=== PATIENT | female | born 1990 | race Caucasian/White ===

== ENCOUNTER 2022-07-29 18:58 | Inpatient (IN) | payer MEDICAID, OTHER ==
--- NOTE | 2022-07-29 20:14 | ED ---
Psych HPI - General Chief Complaint: Psychiatric Symptoms Stated Complaint: Mental Health issues Time Seen by Provider: 07/29/22 20:00 Source: patient, RN notes reviewed Mode of arrival: ambulatory - History of Present Illness Initial Comments: 32-year-old female history depression and schizophrenia who states she still a very depressed and suicidal. She states this is been going on for about 2 weeks. She states her life is falling apart. She has no particular plan on hurting so but she would like to . She also states she has untreated schizophrenia which she hasn't had meds for for several years. She denies any drug or alcohol use. MD Complaint: suicidal ideation, feels depressed, other - Related Data Previous Rx's Medication Instructions Recorded Ibuprofen [Motrin] 600 mg PO Q6HR PRN tab 08/04/22 [place] Carbonate 900 mg PO DAILY 30 Days #90 cap 08/04/22 Melatonin 5 mg PO HS 30 Days #30 tab 08/04/22 Nicotine Gum (Polacrilex) 2 mg BUCCAL Q4HR PRN 30 Days #180 08/04/22 [Nicorette] pieceofgum Paliperidone [Invega] 6 mg PO DAILY 30 Days #30 tab 08/04/22 diphenhydrAMINE [Benadryl] 50 mg PO HS PRN 30 Days #30 cap 08/04/22 hydrOXYzine pamoate [Vistaril] 25 mg PO DAILY PRN 30 Days #30 cap 08/04/22 Allergies Allergy/AdvReac Type Severity Reaction Status Date / Time haloperidol [From Haldol] Allergy Unknown Verified 07/30/22 03:57 Review of Systems ROS Statement: Those systems with pertinent positive or pertinent negative responses have been documented in the HPI. ROS Other: All systems not noted in ROS Statement are negative. Past Medical History Past Medical History: No Reported History History of Any Multi-Drug Resistant Organisms: None Reported Past Surgical History: No Surgical Hx Reported Past Psychological History: Anxiety, Bipolar, Depression, PTSD, Schizophrenia Smoking Status: Vaper Past Alcohol Use History: Occasional Past Drug Use History: None Reported General Exam - General Exam Comments Initial Comments: This a well-developed well-nourished awake alert oriented 4 female Limitations: no limitations General appearance: alert, in no apparent distress Head exam: Present: atraumatic, normocephalic, normal inspection Eye exam: Present: normal appearance, PERRL, EOMI. Absent: scleral icterus, conjunctival injection, periorbital swelling ENT exam: Present: normal exam, mucous membranes moist Neck exam: Present: normal inspection. Absent: tenderness, meningismus, lymphadenopathy Respiratory exam: Present: normal lung sounds bilaterally. Absent: respiratory distress, wheezes, rales, rhonchi, stridor Cardiovascular Exam: Present: regular rate, normal rhythm, normal heart sounds. Absent: systolic murmur, diastolic murmur, rubs, gallop, clicks GI/Abdominal exam: Present: normal bowel sounds. Absent: distended, tenderness, guarding, rebound, rigid Extremities exam: Present: normal inspection, full ROM, normal capillary refill. Absent: tenderness, pedal edema, joint swelling, calf tenderness Back exam: Present: normal inspection Neurological exam: Present: alert, oriented X3, CN II-XII intact Psychiatric exam: Present: depressed, flat affect, suicidal ideation Skin exam: Present: warm, dry, intact, normal color. Absent: rash Course Vital Signs 07/29/22 19:32 Temperature 98.0 F Pulse Rate 70 Respiratory 20 Rate Blood Pressure 132/82 O2 Sat by Pulse 98 Oximetry - Reevaluation(s) Reevaluation #1: 07/29/22 20:51 The patient is pending EPS evaluation I will endorse patient to Dr. Munoz at our shift change Medical Decision Making - Lab Data Result diagrams: 07/31/22 07:26 07/31/22 07:26 Lab Results 07/29/22 07/29/22 07/29/22 Range/Units 20:15 20:15 20:15 Urine Color Yellow Urine Appearance Cloudy H (Clear) Urine pH 6.5 (5.0-8.0) Ur Specific [place] 1.024 (1.001-1.035) Urine Protein Negative (Negative) Urine Glucose (UA) Negative (Negative) Urine Ketones Negative (Negative) Urine Blood Negative (Negative) Urine Nitrite Negative (Negative) Urine Bilirubin Negative (Negative) Urine Urobilinogen <2.0 (<2.0) mg/dL Ur Leukocyte Esterase Moderate H (Negative) Urine RBC 1 (0-5) /hpf Urine WBC 34 H (0-5) /hpf Ur Squamous Epith Cells 7 H (0-4) /hpf Urine Mucus Rare H (None) /hpf Urine HCG, Qual Not Detected (Not Detectd) Urine Opiates Screen Not Detected (NotDetected) Ur Oxycodone Screen Not Detected (NotDetected) Urine Methadone Screen Not Detected (NotDetected) Ur Propoxyphene Screen Not Detected (NotDetected) Ur Barbiturates Screen Not Detected (NotDetected) U Tricyclic Antidepress Not Detected (NotDetected) Ur Phencyclidine Scrn Not Detected (NotDetected) Ur Amphetamines Screen Not Detected (NotDetected) U Methamphetamines Scrn Not Detected (NotDetected) U Benzodiazepines Scrn Not Detected (NotDetected) Urine Cocaine Screen Not Detected (NotDetected) U Marijuana (THC) Screen Not Detected (NotDetected) Coronavirus (PCR) (Not Detectd) 07/30/22 Range/Units 01:37 Urine Color Urine Appearance (Clear) Urine pH (5.0-8.0) Ur Specific [place] (1.001-1.035) Urine Protein (Negative) Urine Glucose (UA) (Negative) Urine Ketones (Negative) Urine Blood (Negative) Urine Nitrite (Negative) Urine Bilirubin (Negative) Urine Urobilinogen (<2.0) mg/dL Ur Leukocyte Esterase (Negative) Urine RBC (0-5) /hpf Urine WBC (0-5) /hpf Ur Squamous Epith Cells (0-4) /hpf Urine Mucus (None) /hpf Urine HCG, Qual (Not Detectd) Urine Opiates Screen (NotDetected) Ur Oxycodone Screen (NotDetected) Urine Methadone Screen (NotDetected) Ur Propoxyphene Screen (NotDetected) Ur Barbiturates Screen (NotDetected) U Tricyclic Antidepress (NotDetected) Ur Phencyclidine Scrn (NotDetected) Ur Amphetamines Screen (NotDetected) U Methamphetamines Scrn (NotDetected) U Benzodiazepines Scrn (NotDetected) Urine Cocaine Screen (NotDetected) U Marijuana (THC) Screen (NotDetected) Coronavirus (PCR) Not Detected (Not Detectd) Disposition Clinical Impression: Depression, Suicidal ideation Disposition: ADMITTED IP TO THIS HOSP Condition: Stable - Out of Hospital Transfer - Req. Specs Out of Hospital Transfer - Requested Specifics: Psychiatric Non-ICU
[2022-07-29 20:50] LABS: Amphetamine Screen,Urine Not Detected (NotDetected); Barbiturate Screen,Urine Not Detected (NotDetected); Benzodiazepines Screen,Urine Not Detected (NotDetected); Cocaine Screen,Urine Not Detected (NotDetected); Methadone Screen, Urine Not Detected (NotDetected); Opiate Screen,Urine Not Detected (NotDetected); Oxycodone Screen, Urine Not Detected (NotDetected); Phencyclidine Screen,Urine Not Detected (NotDetected); Tricyclic Antidepressant,Urine Not Detected (NotDetected); Urn Cannabinoid Scrn Not Detected (NotDetected)
[2022-07-30] MEDS ORDERED: OLANZapine 10 MG VIAL IM PRN (04:10)
[2022-07-30] MEDS ORDERED: LORazepam 2 MG/ML INJ IM PRN (04:10)
[2022-07-30] MEDS ORDERED: OLANZapine 5 MG TAB PO PRN (04:10)
[2022-07-30] MEDS ORDERED: MAG HYDROX/AL HYDROX/SIMETH 30 ML CUP PO PRN (04:10)
[2022-07-30] MEDS ORDERED: ACETAMINOPHEN TAB 325 MG TAB PO PRN (04:10)
[2022-07-30] MEDS ORDERED: LORazepam 1 MG TAB PO PRN (04:10)
[2022-07-30] MEDS ORDERED: MAGNESIUM HYDROXIDE 2,400 MG/10 ML CUP PO PRN (04:10)
[2022-07-30] MEDS ORDERED: traZODone HCL 50 MG TAB PO PRN ×2 (04:15→13:59)
[2022-07-30 05:21] LABS: Appearance,Urine Cloudy (Clear); Bilirubin,Urine Negative (Negative); Blood,Urine Negative (Negative); Color,Urine Yellow; Glucose,Urine (UA) Negative (Negative); Ketones,Urine Negative (Negative); Leukocyte Esterase,Urine Moderate (Negative); Mucus,Urine Rare /hpf; Nitrite,Urine Negative (Negative); PH, Urine 6.5 (5.0-8.0); Protein,Urine Negative (Negative); RBC,Urine 1 /hpf (0-5); Specific Gravity,Urine 1.024 (1.001-1.035); Squamous Epithelial Cell,Urine 7 /hpf (0-4); Urobilinogen,Urine <2.0 mg/dL (<2.0); WBC,Urine 34 /hpf (0-5)
--- NOTE | 2022-07-30 05:30 | P.PN ---
Progress Note - Text Progress Note Date: 07/30/22 notified of new consult , patient sleeping at this time and could not be evaluated
[2022-07-30] MEDS ORDERED: NICOTINE 14MG/24HR PATCH TRANSDERM SCH (09:00)
[2022-07-30] MEDS ORDERED: hydrOXYzine pamoate 25 MG CAP PO PRN (14:34)
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
[2022-07-30] MEDS: NICOTINE GUM (POLACRILEX) 2 MG GUM BUCCAL PRN (14:40)
[2022-07-30] MEDS: lamoTRIgine 25 MG TAB PO SCH ×2 (14:40→21:10)
[2022-07-30] MEDS: PALIPERIDONE 6 MG TAB.ER.24 PO SCH (20:37)
[2022-07-30] MEDS: IBUPROFEN 600 MG TAB PO PRN (21:45)
[2022-07-31 08:10] LABS: Basophils % (A) 1 %; Eosinophils # (A) 0.2 k/uL (0-0.7); Eosinophils % (A) 4 %; HCT 41.9 % (34.0-46.0); Lymphocytes # (A) 2.8 k/uL (1.0-4.8); Lymphocytes % (A) 46 %; MCH 27.9 pg (25.0-35.0); MCHC 31.1 g/dL (31.0-37.0); MCV 89.9 fL (80.0-100.0); Mean Platelet Volume 8.3; Monocytes # (A) 0.3 k/uL (0-1.0); Monocytes % (A) 6 %; Neutrophils # (A) 2.4 k/uL (1.3-7.7); Neutrophils % (A) 40 %; Platelet Count 293 k/uL (150-450); RBC 4.67 m/uL (3.80-5.40); RDW 12.8 % (11.5-15.5); WBC 6.1 k/uL (3.8-10.6)
[2022-07-31 08:21] LABS: ALT 27 U/L (4-34); AST 22 U/L (14-36); African American GFR (CKD) 88 (>60 ml/min/1.73 sqM); Alkaline Phosphatase 33 U/L (38-126); Anion Gap 7 mmol/L; Blood Urea Nitrogen 17 mg/dL (7-17); Calcium 9.1 mg/dL (8.4-10.2); Carbon Dioxide 29 mmol/L (22-30); Chloride 103 mmol/L (98-107); Glucose 91 mg/dL (74-99); Non-African American GFR(CKD) 76 (>60 ml/min/1.73 sqM); Potassium 4.7 mmol/L (3.5-5.1); Sodium 139 mmol/L (137-145); Total Bilirubin 0.3 mg/dL (0.2-1.3); Total Protein 6.8 g/dL (6.3-8.2)
[2022-07-31] MEDS: LITHIUM CARBONATE 150 MG CAP PO SCH ×2 (09:11→20:31)
--- NOTE | 2022-07-31 09:28 | P.PN ---
Progress Note - Text Progress Note Date: 07/31/22 Interval history: Patient was seen today for psych follow up. Patient was laying in her bed this morning and agreeable to speak in the specifications writer's office. She claims that she feels that her brain is "fried" this morning. She states that she does not know how she feels today of. Claims she does not want to take Lamictal as she claims that she used to feel suicidal in the past taking lamotrigine. We spoke about lithium and states that she will be okay trying it today. Claims that she was able to sleep somewhat last night however does not know how many hours. States that she was getting disrupted sleep. States that her appetite is gradually improving. She claims that there may be out a warrant out for her arrest for not reporting to her registration officer which she is worried about now. States that she is still feeling depressed and anxious. Claims that the voices have been improving since yesterday. Denies any suicidal or homicidal ideations intent or plan. Patient has been taking her medications. Mental status exam: General Appearance: Patient appears to be thin, several tattoos and piercings, disheveled appearance, stated age is alert, directable, and attempts to cooperate. Improving eye contact. Behavior: Patient is seated without any agitated behavior. Speech: Patient's speech is fluent and nonpressured. [place], improving mildly Mood/Affect: Patient reports their mood is depressed and anxious, affect is congruent and constricted. Suicidality/Homicidality: Patient denies having any homicidal ideation intent or plan. Denies any suicidal ideations intent or plan Perceptions: Patient denies any visual hallucinations and denies any auditory hallucinations Though content/process: There is no evidence of any delusional thought content and thought process is linear and goal-directed. Rambles at times. Focused on her symptoms. Memory and concentration: AOX3, grossly intact for the purposes of this session Judgment and insight: poor, improving mildly IMPRESSIONS: Schizoaffective disorder, bipolar type ptsd adhd nicotine dependence PLAN: -Patient is admitted under voluntary status to MHU for stabilization of psychiatric symptoms and safety -Medications : Discontinue lamictal and replaced with lithium 150 mg twice a day for mood stabilization/depression, invega 3 mg qhs for mood stabilization/psychosis, d/c trazodone due to restless leg sx. -zyprexa and vistaril PRN for agitation/aggression -NRT - nicotine patch -SW on board for discharge planning. Encourage patient to participate in groups to work on coping skills.
[2022-07-31 15:56] LABS: Chol/HDL Ratio 3.39 Ratio; LDL Cholesterol,Calculated 118.9 mg/dL (0.0-131.0)
[2022-07-31] MEDS: NICOTINE GUM (POLACRILEX) 2 MG GUM BUCCAL PRN (18:52)
[2022-07-31] MEDS: PALIPERIDONE 6 MG TAB.ER.24 PO SCH (20:31)
[2022-08-01] MEDS: LITHIUM CARBONATE 150 MG CAP PO SCH (09:13)
[2022-08-01] MEDS: NICOTINE GUM (POLACRILEX) 2 MG GUM BUCCAL PRN ×2 (10:42→19:55)
--- NOTE | 2022-08-01 16:14 | P.PN ---
Progress Note - Text Progress Note Date: 08/01/22 Interval history: Patient was seen today for psych follow up. patient appeared to be irritable t roque with jingle writer, demanding discharge. she claims that she "ratna myself in and I can sign myself out". she claims that she has a warrant out for her arrest in [place] and needs to return there. patient has been taking her medications as perscribed and ststaes that her anxiety and mood have been improving. she continues to be impulsive and irritable. States that her appetite is gradually improving. She states that her voices have improved and denying any visual hallucinations. Denies any suicidal or homicidal ideations intent or plan. Patient has been taking her medications. Mental status exam: General Appearance: Patient appears to be thin, several tattoos and piercings, disheveled appearance, stated age is alert, directable, and attempts to cooperate. Improving eye contact. Behavior: Patient is seated without any agitated behavior. irritable and demanding. Speech: Patient's speech is fluent and nonpressured. [place], improving mildly Mood/Affect: Patient reports their mood is improving mildly, affect is congruent and constricted. Suicidality/Homicidality: Patient denies having any homicidal ideation intent or plan. Denies any suicidal ideations intent or plan Perceptions: Patient denies any visual hallucinations and denies any auditory hallucinations Though content/process: There is no evidence of any delusional thought content and thought process is linear and goal-directed. Focused on her symptoms. Memory and concentration: AOX3, grossly intact for the purposes of this session Judgment and insight: poor, improving mildly IMPRESSIONS: Schizoaffective disorder, bipolar type ptsd adhd nicotine dependence PLAN: -Patient is admitted under voluntary status to MHU for stabilization of psychiatric symptoms and safety -Medications : increase lithium 300 mg twice a day for mood stabilization/depression, invega 3 mg qhs for mood stabilization/psychosis. -zyprexa and vistaril PRN for agitation/aggression -NRT - nicotine patch -SW on board for discharge planning. Encourage patient to participate in groups to work on coping skills. possible discharge thursday if patient is doing well over the weekend.
[2022-08-01] MEDS: PALIPERIDONE 6 MG TAB.ER.24 PO SCH (20:36)
[2022-08-01] MEDS: LITHIUM CARBONATE 300 MG CAP PO SCH (20:36)
[2022-08-01] MEDS: diphenhydrAMINE 50 MG CAP PO PRN (22:00)
--- NOTE | 2022-08-02 03:15 | P.PN ---
Progress Note - Text Progress Note Date: 08/02/22 patient refused evaluation
[2022-08-02 08:46] VITALS: RESP 16
[2022-08-02] MEDS: LITHIUM CARBONATE 300 MG CAP PO SCH (08:46)
--- NOTE | 2022-08-02 12:03 | P.PN ---
Subjective Progress Note Date: 08/02/22 Principal diagnosis: Interval history: Patient was seen today bedside for follow-up. Patient is quite upset today and repeats that she is frustrated with being hospitalized. She claims to have "Brought myself in " simply so that she would be able to extradite charges from [place] to [place]. She states that her PO told her to do so. However, she explains that she had perfectly legitimate reasons in delaying hospitalization and therefore she blames her current legal situation on others. She externalizes blame and says this hospitalization will result in much trouble for her including keeping her away from being able to return back to [place]. However, patient is visibly irritable, tearful, and argumentative with this provider despite attempts at redirection. She repeatedly states that she does not believe she needs to be on any medication "because I was doing fine for 3 years without any of these medications ". States that her sleep was impacted by Invega and was agreeable with taking this during daytime. She denies auditory hallucinations and denying any visual hallucinations. Denies any suicidal or homicidal ideations intent or plan. Patient has been taking her medications and denies other side effects Mental status exam: General Appearance: Patient appears to be thin, several tattoos and piercings, disheveled appearance, stated age is alert, directable, and attempts to cooperate. Improving eye contact. Behavior: Patient is seated without any agitated behavior. Demanding. Speech: Patient's speech is fluent and nonpressured. [place], improving mildly Mood/Affect: Patient reports their mood is irritable, affect is tearful and angry. Suicidality/Homicidality: Patient denies having any homicidal ideation intent or plan. Denies any suicidal ideations intent or plan Perceptions: Patient denies any visual hallucinations and denies any auditory hallucinations Though content/process: There is no evidence of any delusional thought content and thought process is linear and goal-directed. Focused on her symptoms. Memory and concentration: AOX3, grossly intact for the purposes of this session Judgment and insight: poor, improving mildly IMPRESSIONS: Schizoaffective disorder, bipolar type vs bipolar disorder with psychotic features H/o PTSD H/o ADHD nicotine dependence Cluster B traits PLAN: -Patient is admitted under voluntary status to MHU for stabilization of psychiatric symptoms and safety -Medications : increase lithium to 300 mg daily and 600 mg qHS for mood stabilization/depression, modify invega to 6 mg daily for mood stabilization/psychosis. -zyprexa and vistaril PRN for agitation/aggression -NRT - nicotine patch -SW on board for discharge planning. Encourage patient to participate in groups to work on coping skills. possible discharge thursday if patient is doing well over the weekend. Objective - Vital Signs Vital signs: Vital Signs Temp 96.9 F L 08/02/22 08:45 Pulse 107 H 08/02/22 08:45 Resp 16 08/02/22 08:45 BP 114/58 08/02/22 08:45 Pulse Ox 94 L 08/02/22 08:45 FiO2 - Labs CBC & Chem 7: 07/31/22 07:26 07/31/22 07:26
[2022-08-02] MEDS: NICOTINE GUM (POLACRILEX) 2 MG GUM BUCCAL PRN (16:32)
[2022-08-02] MEDS ORDERED: LITHIUM CARBONATE 300 MG CAP PO SCH (21:00)
[2022-08-02] MEDS: diphenhydrAMINE 50 MG CAP PO PRN (23:06)
[2022-08-02] MEDS: IBUPROFEN 600 MG TAB PO PRN (23:07)
[2022-08-03] MEDS ORDERED: LITHIUM CARBONATE 300 MG CAP PO SCH (09:00)
[2022-08-03] MEDS: IBUPROFEN 600 MG TAB PO PRN ×2 (09:15→20:13)
[2022-08-03] MEDS: PALIPERIDONE 6 MG TAB.ER.24 PO SCH (09:15)
[2022-08-03] MEDS: NICOTINE GUM (POLACRILEX) 2 MG GUM BUCCAL PRN (10:31)
--- NOTE | 2022-08-03 13:02 | P.PN ---
Progress Note - Text Progress Note Date: 08/03/22 Interval history: Patient was seen today bedside for follow-up. Patient is more pleasant and co operative today. She states that she is doing "much better" on lithium. She believes that it helps her in improving her energy level. She states that she is having trouble falling asleep after taking her nighttime dose of lithium. She states that she was able to fall asleep after receiving Benadryl when necessary for sleep. She requests for Lyman to be once a day. Patient is less fixated on discharge today although yesterday she did state that if she was not discharged on Thursday, she would be in legal trouble in [place]. She denies auditory hallucinations and denying any visual hallucinations. Denies any suicidal or homicidal ideations intent or plan. Patient has been taking her medications and denies other side effects Mental status exam: General Appearance: Patient appears to be thin, several tattoos and piercings, disheveled appearance, stated age is alert, directable, and attempts to cooperate. Improving eye contact. Behavior: Patient is seated without any agitated behavior. More plesant Speech: Patient's speech is fluent and nonpressured. [place], improving mildly Mood/Affect: Patient reports their mood is "much better" affect congruent Suicidality/Homicidality: Patient denies having any homicidal ideation intent or plan. Denies any suicidal ideations intent or plan Perceptions: Patient denies any visual hallucinations and denies any auditory hallucinations Though content/process: There is no evidence of any delusional thought content and thought process is linear and goal-directed. Memory and concentration: AOX3, grossly intact for the purposes of this session Judgment and insight: poor, improving mildly IMPRESSIONS: Schizoaffective disorder, bipolar type vs bipolar disorder with psychotic features H/o PTSD H/o ADHD nicotine dependence Cluster B traits PLAN: -Patient is admitted under voluntary status to MHU for stabilization of psychiatric symptoms and safety -Medications : modify lithium to 900 mg daily for mood stabilization/depression, continue invega 6 mg daily for mood stabilization/psychosis. Add melatonin5 mg qHS for sleep -zyprexa and vistaril PRN for agitation/aggression -NRT - nicotine patch -SW on board for discharge planning. Encourage patient to participate in groups to work on coping skills. possible discharge thursday if patient is doing well over the weekend.
[2022-08-03] MEDS ORDERED: MELATONIN 5 MG TABLET PO SCH (21:00)
[2022-08-03] MEDS: diphenhydrAMINE 50 MG CAP PO PRN (21:37)
[2022-08-04 07:02] VITALS: BP 101/51; PULSE 53; TEMP 97.2
[2022-08-04] MEDS: PALIPERIDONE 6 MG TAB.ER.24 PO SCH (08:07)
[2022-08-04] MEDS ORDERED: LITHIUM CARBONATE 300 MG CAP PO SCH (09:00)
[2022-08-04] MEDS: NICOTINE GUM (POLACRILEX) 2 MG GUM BUCCAL PRN (09:20)
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
== END 2022-08-04 12:11 | disposition home or self-care (01) | DRG 750 ==
LOC: EC 18:58 → 3MHU 07-30 03:42
PROVIDERS: ADMIT Psychiatry & Neurology Psychiatry; ATTEND Psychiatry & Neurology Psychiatry
DX: F25.0 Schizoaffective disorder, bipolar type (principal); F32.A Depression, unspecified; R45.851 Suicidal ideations; F41.9 Anxiety disorder, unspecified; F43.10 Post-traumatic stress disorder, unspecified; F17.290 Nicotine dependence, other tobacco product, uncomplicated; Z20.822 Contact with and (suspected) exposure to COVID-19; F60.89 Other specific personality disorders; F90.9 Attention-deficit hyperactivity disorder, unspecified type; Z79.899 Other long term (current) drug therapy; Z28.310 Unvaccinated for COVID-19; Z88.8 Allergy status to other drugs, medicaments and biological substances; Z91.51 Personal history of suicidal behavior; Z56.0 Unemployment, unspecified
CPT/HCPCS: 80053; 80061; 80306; 81001; 81025; 82075; 83036; 84443; 85025; 87635; 99285

== ENCOUNTER 2023-07-12 16:19 | Emergency (ER) | payer OTHER ==
[2023-07-12 16:42] VITALS: TEMP 98
[2023-07-12] MEDS: PROPARACAINE 0.5% OPHTH DROPS 15 ML BTL BOTH EYES STA (18:02)
[2023-07-12] MEDS: FLUORESCEIN STRIPS 1 MG STRIP RIGHT EYE ONE (18:02)
[2023-07-12] MEDS: FLUORESCEIN STRIPS 1 MG STRIP LEFT EYE ONE (18:02)
--- NOTE | 2023-07-12 18:45 | ED ---
Eye Problem HPI - General Chief complaint: Eye Problems Stated complaint: vision loss Time Seen by Provider: 07/12/23 16:53 Source: patient Mode of arrival: ambulatory Limitations: no limitations - History of Present Illness Initial comments: 33-year-old female presenting to the ED with a chief complaint of bilateral eye irritation. Patient reports that she putting colored contacts last night and was unable to take them out herself. Therefore, she went to an urgent care who placed lidocaine in her eyes and remove them for her. No reports of burning pain of bilateral eyes. No vision losses. States her last tetanus shot was 6 months ago. No other complaints at this time. - Related Data Previous Rx's Medication Instructions Recorded Ibuprofen [Motrin] 600 mg PO Q6HR PRN tab 08/04/22 [place] Carbon[place] 900 mg PO DAILY 30 Days #90 cap 08/04/22 Melatonin 5 mg PO HS 30 Days #30 tab 08/04/22 Nicotine Gum (Polacrilex) 2 mg BUCCAL Q4HR PRN 30 Days #180 08/04/22 [Nicorette] pieceofgum Paliperidone [Invega] 6 mg PO DAILY 30 Days #30 tab 08/04/22 diphenhydrAMINE [Benadryl] 50 mg PO HS PRN 30 Days #30 cap 08/04/22 hydrOXYzine pamoate [Vistaril] 25 mg PO DAILY PRN 30 Days #30 cap 08/04/22 Allergies Allergy/AdvReac Type Severity Reaction Status Date / Time haloperidol [From Haldol] Allergy Unknown Verified 07/30/22 03:57 Review of Systems ROS Statement: Those systems with pertinent positive or pertinent negative responses have been documented in the HPI. ROS Other: All systems not noted in ROS Statement are negative. Past Medical History Past Medical History: No Reported History History of Any Multi-Drug Resistant Organisms: None Reported Past Surgical History: Orthopedic Surgery Past Anesthesia/Blood Transfusion Reactions: No Reported Reaction Past Psychological History: Anxiety, Bipolar, Depression, PTSD, Schizophrenia Smoking Status: Vaper Past Alcohol Use History: Occasional Past Drug Use History: None Reported General Exam Limitations: no limitations General appearance: alert, in no apparent distress Eye exam: Present: PERRL, EOMI, conjunctival injection, other (Fluorescein exam shows corneal abrasion of the right eye. Left eye unremarkable.) Neck exam: Present: normal inspection Respiratory exam: Present: normal lung sounds bilaterally Cardiovascular Exam: Present: regular rate GI/Abdominal exam: Present: soft Neurological exam: Present: alert, oriented X3 Skin exam: Present: warm, dry Course Vital Signs 07/12/23 07/12/23 07/12/23 16:31 17:07 18:00 Temperature 98 F Pulse Rate 77 75 79 Respiratory 20 18 22 Rate Blood Pressure 141/93 120/86 124/76 O2 Sat by Pulse 97 95 100 Oximetry Medical Decision Making - Medical Decision Making Was pt. sent in by a medical professional or institution (ANN-MARIE Hagan, [employer]UE [employer], urgent care, hospital, or senior living...) When possible be specific @ -No Did you speak to anyone other than the patient for history (EMS, parent, family, police, friend...)? What history was obtained from this source @ -No Did you review nursing and triage notes (agree or disagree)? Why? @ -I reviewed and agree with nursing and triage notes Were old charts reviewed (outside hosp., previous admission, EMS record, old EKG, old radiological studies, urgent care reports/EKG's, senior living records)? Report findings @ -No old charts were reviewed Differential Diagnosis (chest pain, altered mental status, abdominal pain women, abdominal pain men, vaginal bleeding, weakness, fever, dyspnea, syncope, headache, dizziness, GI bleed, back pain, seizure, CVA, palpatations, mental health, musculoskeletal)? @ -Acute angle-closure glaucoma, conjunctivitis, corneal abrasion, corneal laceration. This is not meant to be an all-inclusive list. EKG interpreted by me (3pts min.). @ -None X-rays interpreted by me (1pt min.). @ -None done CT interpreted by me (1pt min.). @ -None done U/S interpreted by me (1pt. min.). @ -None done What testing was considered but not performed or refused? (CT, X-rays, U/S, labs)? Why? @ -None What meds were considered but not given or refused? Why? @ -None Did you discuss the management of the patient with other professionals (professionals i.e. ANN-MARIE Hagan, FLUE [employer]ER, lab, RT, psych nurse, manager social services, counseling center director, teacher, anti air warfare operations officer, telephonic nurse case manager)? Give summary @ -No Was smoking cessation discussed for >3mins.? @ -No Was critical care preformed (if so, how long)? @ -No Were there social determinants of health that impacted care today? How? (Homelessness, low income, unemployed, alcoholism, drug addiction, transportation, low edu. Level, literacy, decrease access to med. care, penitentiary, r ehab)? @ -No Was there de-escalation of care discussed even if they declined (Discuss DNR or withdrawal of care, Hospice)? DNR status @ -No What co-morbidities impacted this encounter? (DM, HTN, Smoking, COPD, CAD, Cancer, CVA, ARF, Chemo, Hep., AIDS, mental health diagnosis, sleep apnea, morbid obesity)? @ -None Was patient admitted / discharged? Hospital course, mention meds given and route, prescriptions, significant lab abnormalities, going to OR and other pertinent info. @ -Discharge 33-year-old female presenting to the ED as she reports she put on colored contacts last night and cannot take them out herself. Went to an urgent care today and they placed lidocaine in her eye and removed from for her. Now notes burning irritation of both her eyes. Denies vision loss. On examination, there is a corneal abrasion of the right eye. Left eye unremarkable. Tetanus status up-to-date. Patient provided proparacaine eyedrops. Reports feeling significantly improved after this. Symptoms likely due to chemical irritant conjunctivitis with corneal abrasion of the right eye. Provided tobramycin eyedrops. Discharged home with referral to see ophthalmology and advised close follow-up with ophthalmology. Discussed return precautions with patient who verbalized agreement. Undiagnosed new problem with uncertain prognosis? @ -No Drug Therapy requiring intensive monitoring for toxicity (Heparin, Nitro, Insulin, Cardizem)? @ -No Were any procedures done? @ -No Diagnosis/symptom? @ -Chemical irritant conjunctivitis, right eye corneal abrasion Acute, or Chronic, or Acute on Chronic? @ -Acute Uncomplicated (without systemic symptoms) or Complicated (systemic symptoms)? @ -Uncomplicated Side effects of treatment? @ -No Exacerbation, Progression, or Severe Exacerbation? @ -No Poses a threat to life or bodily function? How? (Chest pain, [place], VT, pneumonia, PE, COPD, DKA, ARF, appy, cholecystitis, CVA, Diverticulitis, Homicidal, Suicidal, threat to staff... and all critical care pts) @ -No Disposition Clinical Impression: Conjunctivitis, Corneal abrasion Disposition: HOME SELF-CARE Condition: Good Additional Instructions: Please return to the Emergency Department if symptoms worsen or any other concerns. Please follow-up with ophthalmology. 2 eyedrops every 6 hours for 5 days in both eyes. Is patient prescribed a controlled substance at d/c from ED?: No Referrals: Nonstaff,Physician [Primary Care Provider] - 1-2 days Jaycob Phillips MD [STAFF PHYSICIAN] - 1-2 days Time of Disposition: 18:15
[2023-07-12] MEDS: TOBRAMYCIN 0.3% OPHTH DROPS 5 ML BTL BOTH EYES STA (19:00)
[2023-07-12 19:17] VITALS: BP 131/82; PULSE 81; RESP 18
== END 2023-07-12 19:04 | disposition home or self-care (01) ==
LOC: EC 16:19
DX: S05.01XA Injury of conjunctiva and corneal abrasion without foreign body, right eye, initial encounter (principal); H10.211 Acute toxic conjunctivitis, right eye; F17.290 Nicotine dependence, other tobacco product, uncomplicated; Z88.8 Allergy status to other drugs, medicaments and biological substances; X58.XXXA Exposure to other specified factors, initial encounter
CPT/HCPCS: 99283